=== PATIENT | male | born 2000 | race Caucasian/White ===

== ENCOUNTER 2019-10-31 10:46 | Emergency (ER) | payer BC, SELFPAY ==
--- NOTE | ~2019-10-31 | XR_ITS ---
EXAMINATION: XR knee LT 3V DATE: 10/31/2019 12:27 INDICATION: Patellar dislocation post reduction TECHNIQUE: Anteroposterior, oblique and crosstable lateral views of the left knee were obtained COMPARISON: None. FINDINGS: Successful reduction of the previously laterally dislocated patella. There is residual patella praneeth. Which likely predispose towards the recurrent patellar dislocations. No evident fracture. Likely reac tive small left knee joint effusion without a well-defined layering flat fluid level to suggest lipoh emarthrosis. Soft tissues are unremarkable. IMPRESSION: 1. Successful reduction of previously dislocated patella. There is a residual patella praneeth which like ly accounts for the predisposition for recurrent dislocations. 2. Likely reactive small left knee joint effusion. No evident fracture. Reviewed, dictated and finalized at location A. IMPRESSION: 1. Successful reduction of previously dislocated patella. There is a residual p atella praneeth which likely accounts for the predisposition for recurrent dislocat ions. 2. Likely reactive small left knee joint effusion. No evident fracture.
--- NOTE | ~2019-10-31 | XR_ITS ---
XR knee LT min 4V DATE: 10/31/2019 11:14 INDICATION: Patient fell this morning on the stairs. Possible dislocation TECHNIQUE: 4 views COMPARISON: 09/04/2013 postoperative reduction left knee FINDINGS: There is lateral dislocation at the patellofemoral joint. No apparent fracture is evident. No joint effusion is detected. No periosteal reaction or bone destruction. No radiopaque intra-articular loose body or chondrocalcin osis. Joint spaces are preserved. IMPRESSION: Lateral dislocation of the patella Reviewed, dictated and finalized at location A.
[2019-10-31 10:45] VITALS: BP 121/74; PULSE 80; RESP 18; TEMP 36.8; O2SAT 98
--- NOTE | 2019-10-31 11:45 | PC.NURSE ---
ERP MERY Stern at bedside for reduction of knee cap.
--- NOTE | 2019-10-31 11:45 | ED.LOWEXIN ---
HPI - Extremity Injury (Lower) General Chief Complaint: Extremity Injury, Lower Stated Complaint: LEFT KNEE INJURY Time Seen by Provider: 10/31/19 11:15 Source: patient Mode of arrival: EMS Limitations: no limitations History of Present Illness HPI Narrative: This is a 19 year old male that presents to the ER for left patella dislocation just prior to arrival. Reports he was walking down steps and stepped down the last step and felt a pop in his left knee. Reports he has had this happen several times in both knees. Has had the right surgically repaired and is due to have the left repaired. Reports decreased range of motion in the knee due to pain. Denies other injuries, or numbness. Related Data Home Medications Medication Instructions Recorded Confirmed No Home Medications 10/31/19 10/31/19 Allergies Allergy/AdvReac Type Severity Reaction Status Date / Time BEE STINGS Allergy Mild Unknown Uncoded 10/31/19 10:51 SEASONAL ALLERGENS Allergy Mild Unknown Uncoded 10/31/19 10:51 Review of Systems Review of Systems: Narrative: CONSTITUTIONAL: Denies fever MUSCULOSKELETAL: Reports joint pain, and myalgia. NEUROLOGIC: Denies numbness All systems reviewed & are unremarkable except as noted in HPI and below PMFSH Past Medical History Medical History (Updated 10/31/19 @ 13:33 by Shandra Terry PA-C) History of ADHD Surgical History Surgical History (Updated 10/31/19 @ 11:48 by Shandra Terry PA-C) History of right knee surgery Exam Narrative: Exam Narrative: GENERAL: Well-appearing, well-nourished, and in no acute distress. HEAD: Normocephalic, atraumatic. EYES: EOMI. EXTREMITIES: Decreased range of motion in the left knee with obvious deformity. Left patella laterally dislocated. Normal DP pulses. Normal sensation. SKIN: Warm, dry, no rash. NEURO: No focal deficits. Alert and oriented x3. PSYCH: Normal mood and affect Course Vital Signs Vital signs: Vital Signs Temperature 98.3 F 10/31/19 10:45 Pulse Rate 80 10/31/19 10:45 Respiratory Rate 18 10/31/19 10:45 Blood Pressure 121/74 10/31/19 10:45 Pulse Oximetry 98 10/31/19 10:45 Temperature 98.3 F 10/31/19 10:45 Pulse Rate 77 10/31/19 12:14 Respiratory Rate 18 10/31/19 12:14 Blood Pressure 120/71 10/31/19 12:14 Pulse Oximetry 99 10/31/19 12:14 Procedures Orthopedic Joint Reduction Joint #1: Orthopedic Joint Reduction Date: 10/31/19 Orthopedic Joint Reduction Time: 13:28 Side: left Joint Reduction Location: knee/patella Analgesia: other (Fentanyl) Pre-Procedure Neuro Vascular Exam: normal Technique used: traction/counter-traction Post-reduction neuro exam: intact Post-reduction vascular: intact Post Reduction X-Ray Obtained: Yes Post Reduction X-Ray Results: reduced Splint Applied: Yes Patient Tolerated Procedure: well and no complications MDM - Extremity Injury (Lower) MDM Narrative Medical decision making narrative: Patient presents the emergency department for patellar dislocation. 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 Has had the right surgically fixed. Is due to have left surgically repaired. Left patella reduced by myself, with post reduction showing successful reduction. Patient's knee was immobilized with his brace from home. Also reports he has crutches at home. Was instructed to follow-up with his orthopedic doctor. Patient was given warnings to return to the ER Imaging Data Radiologist's impression: ITS Impressions Knee X-Ray 10/31/19 11:17 IMPRESSION: Lateral dislocation of the patella Knee X-Ray 10/31/19 12:31 IMPRESSION: 1. Successful reduction of previously dislocated patella. There is a residual patella praneeth which likely accounts for the predisposition for recurrent dislocations. 2. Likely reactive small left knee joint effusion. No evident fracture.
[2019-10-31 11:48] VITALS: BP 115/80; PULSE 74; RESP 18; O2SAT 100
[2019-10-31 12:14] VITALS: BP 120/71; PULSE 77; RESP 18; O2SAT 99
--- NOTE | 2019-10-31 12:30 | PC.NURSE ---
pt returned from imaging via stretcher at this time.
[2019-10-31 13:40] VITALS: BP 121/76; PULSE 70; RESP 18; O2SAT 100
== END 2019-10-31 13:42 | disposition home or self-care (01) ==
PROVIDERS: Emergency Provider Emergency Medicine
DX: S83.005A Unspecified dislocation of left patella, initial encounter (principal); X50.0XXA Overexertion from strenuous movement or load, initial encounter
CPT/HCPCS: 27560; 73562; 73564; 96374; 99285; J3010

== ENCOUNTER → 2019-11-08 12:44 | Outpatient (CLI) | payer BC, SELFPAY ==
--- NOTE | ~2019-11-08 | MR_ITS ---
EXAMINATION: MR knee LT wo con DATE: 11/08/2019 13:31 INDICATION: Left patellar dislocation. TECHNIQUE: Magnetic resonance imaging (MRI) of the left knee was performed without intravenous contra st. Sequences included axial PD-weighted FS FSE, coronal PD-weighted FSE and PD-weighted FS FSE, sagi ttal PD-weighted FSE, and sagittal T2-weighted FS FSE. COMPARISON: Left knee radiographs 10/31/2019 FINDINGS: Medial compartment: Medial meniscus is normal. Medial compartment cartilage is normal. Lateral compartment: Lateral meniscus is normal. Lateral compartment cartilage is normal. Patellofemoral compartment: Trochlear dysplasia is noted. Trochlear cartilage is normal. There is cartilage surface irregularity of patellar medial facet. Ligaments and tendons: The anterior and posterior cruciate ligaments are normal. Medial collateral ligament and lateral francisco ateral ligament complex are normal. The patellar tendon is normal. Fluid: There is a small knee joint effusion. Osseous/other: There is bone marrow edema in medial pole of patella and lateral aspect of lateral femoral condyle, c onsistent with contusions. IMPRESSION: 1. Kissing contusion pattern of patellar dislocation-relocation injury. Mild chondrosis of patellar m edial facet. 2. Trochlear dysplasia. 3. Small knee joint effusion. Reviewed, dictated and finalized at location A. IMPRESSION: 1. Kissing contusion pattern of patellar dislocation-relocation injury. Mild ch ondrosis of patellar medial facet. 2. Trochlear dysplasia. 3. Small knee joint effusion.
== END ==
DX: M22.02 Recurrent dislocation of patella, left knee (principal)
CPT/HCPCS: 73721